=== PATIENT | male | born 1935 | race Caucasian/White ===

== ENCOUNTER 2018-05-08 17:44 | Emergency (ER) | payer BC ==
[~2018-05-08] VITALS: Ht 188 cm; Wt 94.3 kg
[2018-05-08 17:44] VITALS: BP_SYST 125
[2018-05-08 19:10] VITALS: BP_SYST 127
== END 2018-05-08 19:10 | disposition home or self-care (01) ==
LOC: SED 17:44
DX: S00.03XA Contusion of scalp, initial encounter (principal); I10 Essential (primary) hypertension; Z86.73 Personal history of transient ischemic attack (TIA), and cerebral infarction without residual deficits; Z88.8 Allergy status to other drugs, medicaments and biological substances; W18.00XA Striking against unspecified object with subsequent fall, initial encounter; Y93.01 Activity, walking, marching and hiking; Y92.89 Other specified places as the place of occurrence of the external cause; Y99.8 Other external cause status
CPT/HCPCS: 70450-TC; 99284

== ENCOUNTER 2019-01-30 19:54 | Inpatient (IN) | payer BC ==
[~2019-01-30] VITALS: Ht 185.4 cm; Wt 100.0 kg
[2019-01-30 20:00] VITALS: BP_SYST 112
[2019-01-31 01:23] LABS: HEMATOCRIT 40.6 % (36-54); HEMOGLOBIN 13.5 g/dL (14.0-18.0); MEAN CORPUSCULAR HEMOGLOBIN 31 pg (27-31); MEAN CORPUSCULAR HGB CONC 33 % (32-36); MEAN CORPUSCULAR VOLUME 93 fL (79.0-98.0); PLATELET COUNT (AUTO) 183 K/uL (130-430); RED BLOOD CELL COUNT(AUTO) 4.34 MIL/uL (4.2-6.2); WHITE BLOOD COUNT (AUTO) 9.9 K/uL (4.8-10.8)
[2019-01-31 01:24] LABS: BASOPHILS % (AUTO) 0.5 % (0.0-2.0); EOSINOPHILS # (AUTO) 0.6 K/uL (0.0-0.4); EOSINOPHILS % (AUTO) 6.5 % (0.0-4.0); LYMPHOCYTES # (AUTO) 1.6 K/uL (1.0-5.5); MONOCYTES # (AUTO) 0.9 K/uL (0.0-1.0); MONOCYTES % (AUTO) 9.6 % (1.7-9.3); NEUTROPHILS # (AUTO) 6.6 K/uL (1.8-7.7); NEUTROPHILS % (AUTO) 67.4 % (40.0-70.0)
[2019-01-31 01:25] LABS: ANION GAP 8 (5-15); CALCIUM 9.5 mg/dL (8.4-11.0); CHLORIDE 103 mmol/L (98-107); CREATININE 2.31 mg/dL (0.55-1.30); GLUCOSE 101 mg/dL (70-99); POTASSIUM 4.8 mmol/L (3.5-5.1); SODIUM SERUM 136 mmol/L (136-145); UREA NITROGEN, BLOOD 46 mg/dL (8-21)
[2019-01-31 01:30] LABS: PROTHROMBIN TIME 9.9 SECS (9.5-12.5)
[2019-01-31 01:31] LABS: ALANINE AMINOTRANSFERASE 20 U/L (12-78); ALBUMIN 3.7 g/dL (3.4-4.8); ASPARTATE AMINOTRANSFERASE 19 U/L (10-37); TOTAL BILIRUBIN 0.2 mg/dL (0.0-1.0)
[2019-01-31] MEDS ORDERED: ACET325T53 PO (01:46)
[2019-01-31] MEDS ORDERED: TAMS-11 PO (01:46)
[2019-01-31] MEDS ORDERED: LISI-600 PO (01:46)
[2019-01-31] MEDS ORDERED: LANS15CA14 PO (01:46)
[2019-01-31] MEDS ORDERED: DOCU-144 PO (01:46)
[2019-01-31] MEDS ORDERED: CEL20 PO (01:46)
[2019-01-31] MEDS ORDERED: MAGN400T10 PO (01:46)
[2019-01-31] MEDS ORDERED: ATEN-41 PO (01:46)
[2019-01-31] MEDS ORDERED: ASA81 PO (01:46)
[2019-01-31] MEDS ORDERED: KETO60CR2 TP (01:46)
[2019-01-31] MEDS ORDERED: CYAI1000 IM (01:46)
[2019-01-31] MEDS ORDERED: TEMA15CA5 PO (01:46)
[2019-01-31 02:52] VITALS: BP_SYST 147
[2019-01-31 04:45] VITALS: BP_SYST 143
[2019-01-31 07:39] VITALS: BP_SYST 129
[2019-01-31] MEDS ORDERED: ZOLPIDEM TARTRATE 5 MG TABLET PO PRN (10:15)
[2019-01-31] MEDS ORDERED: MORPHINE 4 MG/ML INJ. SYRINGE IVP PRN ×2 (10:15)
[2019-01-31] MEDS ORDERED: ONDANSETRON HCL 4 MG/2 ML VIAL IVP PRN (10:15)
[2019-01-31] MEDS ORDERED: POTASSIUM CHLORIDE 20 MEQ TAB.PRT.SR PO PRN (10:15)
[2019-01-31] MEDS ORDERED: LORazepam 2 MG/ML VIAL IVP PRN (10:15)
[2019-01-31] MEDS ORDERED: ACETAMINOPHEN 325 MG TABLET PO SCH (10:15)
[2019-01-31] MEDS ORDERED: DOCUSATE SODIUM 100 MG CAPSULE PO PRN (10:15)
[2019-01-31] MEDS ORDERED: MAGNESIUM SULFATE 50 ML IV PRN (10:15)
[2019-01-31] MEDS ORDERED: MUPIROCIN 2% TOPICAL OINTMENT 22 GM NS PRN (10:15)
[2019-01-31] MEDS ORDERED: ACETAMINOPHEN 325 MG TABLET PO PRN (10:15)
[2019-01-31] MEDS: NACL 0.9% 1,000 ML IV SCH (10:38)
[2019-01-31 12:37] VITALS: BP_SYST 95
[2019-01-31 14:35] LABS: BILIRUBIN,URINE NEGATIVE (NEGATIVE); BLOOD, URINE NEGATIVE (NEGATIVE); CLARITY/URINE SL HAZY (CLEAR); COLOR,URINE YELLOW (YELLOW); GLUCOSE,URINE NEGATIVE (NEGATIVE); KETONES,URINE NEGATIVE (NEGATIVE); LEUKOCYTE ESTERASE ,URINE NEGATIVE (NEGATIVE); NITRITE, URINE NEGATIVE (NEGATIVE); PH,URINE 6.5 (5.0-8.0); PROTEIN URINE NEGATIVE (NEGATIVE); UROBILINOGEN,URINE 0.2 (0.2-1.0)
[2019-01-31 16:33] VITALS: BP_SYST 128
[2019-01-31 19:05] VITALS: BP_SYST 133
[2019-01-31] MEDS ORDERED: TAMSULOSIN HCL 0.4 MG CAP PO SCH (21:00)
[2019-01-31] MEDS: DOCUSATE SODIUM 100 MG CAPSULE PO SCH (22:07)
[2019-02-01] MEDS: NACL 0.9% 1,000 ML IV SCH (01:55)
[2019-02-01 07:50] LABS: ANION GAP 10 (5-15); CALCIUM 8.8 mg/dL (8.4-11.0); CHLORIDE 107 mmol/L (98-107); CREATININE 1.79 mg/dL (0.55-1.30); GLUCOSE 107 mg/dL (70-99); POTASSIUM 4.9 mmol/L (3.5-5.1); SODIUM SERUM 139 mmol/L (136-145); UREA NITROGEN, BLOOD 33 mg/dL (8-21)
[2019-02-01 08:16] VITALS: BP_SYST 136
[2019-02-01 08:30] LABS: WHITE BLOOD COUNT (AUTO) 7.4 K/uL (4.8-10.8)
[2019-02-01 08:31] LABS: EOSINOPHILS % (AUTO) 11.7 % (0.0-4.0); HEMOGLOBIN 12.7 g/dL (14.0-18.0); LYMPHOCYTES # (AUTO) 1.6 K/uL (1.0-5.5); MEAN CORPUSCULAR HEMOGLOBIN 31 pg (27-31); MEAN CORPUSCULAR HGB CONC 33 % (32-36); MEAN CORPUSCULAR VOLUME 93 fL (79.0-98.0); MONOCYTES # (AUTO) 0.9 K/uL (0.0-1.0); MONOCYTES % (AUTO) 12.2 % (1.7-9.3); NEUTROPHILS % (AUTO) 54.1 % (40.0-70.0); PLATELET COUNT (AUTO) 189 K/uL (130-430); RED BLOOD CELL COUNT(AUTO) 4.09 MIL/uL (4.2-6.2); RED CELL DISTRIBUTION WIDTH 14.6 % (9.0-15.0)
[2019-02-01 08:32] LABS: BASOPHILS # (AUTO) 0.1 K/uL (0.0-0.2); EOSINOPHILS # (AUTO) 0.9 K/uL (0.0-0.4)
[2019-02-01] MEDS: DOCUSATE SODIUM 100 MG CAPSULE PO SCH (08:55)
[2019-02-01] MEDS ORDERED: CITALOPRAM HYDROBROMIDE 20 MG TABLET PO SCH (09:00)
[2019-02-01] MEDS ORDERED: ASPIRIN 81 MG TAB.CHEW PO SCH (09:00)
[2019-02-01] MEDS ORDERED: ATENOLOL 25 MG TABLET(TENORMIN) PO SCH (09:00)
[2019-02-01 12:23] VITALS: BP_SYST 143
[2019-02-01 13:03] VITALS: BP_SYST 140
== END 2019-02-01 14:57 | DRG 913 ==
LOC: SED 19:54 → STU 01-31 00:50
PROVIDERS: ADMIT General Practice; ATTEND General Practice
DX: S09.8XXA Other specified injuries of head, initial encounter (principal); N17.0 Acute kidney failure with tubular necrosis; I69.354 Hemiplegia and hemiparesis following cerebral infarction affecting left non-dominant side; G90.8 Other disorders of autonomic nervous system; N40.0 Benign prostatic hyperplasia without lower urinary tract symptoms; K21.9 Gastro-esophageal reflux disease without esophagitis; H91.90 Unspecified hearing loss, unspecified ear; F32.9 Major depressive disorder, single episode, unspecified; I10 Essential (primary) hypertension; W18.30XA Fall on same level, unspecified, initial encounter; Y93.89 Activity, other specified; Y92.121 Bathroom in nursing home as the place of occurrence of the external cause; Y99.8 Other external cause status; Z88.8 Allergy status to other drugs, medicaments and biological substances; Z95.1 Presence of aortocoronary bypass graft; Z79.82 Long term (current) use of aspirin; Z79.899 Other long term (current) drug therapy
CPT/HCPCS: 36415; 70450-TC; 71045; 80048; 80053; 81003; 83036; 83735-TC; 85025; 85610-TC; 85730-TC; 87081; 93005; 97110-GP; 97112-GP; 97530-GP; 99285; G0378; J7030; J7050

== ENCOUNTER 2022-03-11 11:31 | Inpatient (IN) | payer BC ==
[~2022-03-11] VITALS: Ht 172.7 cm; Wt 83.6 kg
[2022-03-11] VITALS (11 sets, daily range): BP systolic 74–200
[~2022-03-11 11:31] MED LIST: ACET325T53 PO; ASA81 PO; ATEN-41 PO; CEL20 PO; DOCU-144 PO; KETO60CR2 TP; TAMS-11 PO; TEMA15CA5 PO
--- NOTE | 2022-03-11 11:38 | NUR ---
Patient to ER bed 08 to gown for evaluation. Side rails up.
--- NOTE | 2022-03-11 11:44 | NUR ---
ER at bedside examining patient.
[2022-03-11] MEDS ORDERED: NACL 0.9% 1,000 ML IV ONE ×2 (12:00→13:15)
--- NOTE | 2022-03-11 12:00 | NUR ---
RECEIVED PT IN BED #8 [facility] FROM [facility] FOR CC OF POSSIBLE SEPSIS INFECTION AND HEMATURIA. PT IS ALTERED, WITH STAFF STATING HE IS NORMALLY A&OX3. PT HAS NEW SADLER PLACED WITH BLOOD. PT TO BE FURTHER ASSESSED BY ED MD FOR PLAN OF CARE WITH DISPOSITION.
[2022-03-11 12:18] LABS: BASOPHILS % (AUTO) 0.1 % (0.0-2.0); EOSINOPHILS % (AUTO) 0.4 % (0.0-4.0); HEMATOCRIT 43.3 % (36-54); HEMOGLOBIN 14.4 g/dL (14.0-18.0); LYMPHOCYTES # (AUTO) 0.3 K/uL (1.0-5.5); LYMPHOCYTES % (AUTO) 5.5 % (20.5-51.5); MEAN CORPUSCULAR HEMOGLOBIN 30 pg (27-31); MEAN CORPUSCULAR HGB CONC 33 % (32-36); MEAN CORPUSCULAR VOLUME 90 fL (79.0-98.0); MONOCYTES % (AUTO) 0.2 % (1.7-9.3); NEUTROPHILS # (AUTO) 5.4 K/uL (1.8-7.7); NEUTROPHILS % (AUTO) 93.8 % (40.0-70.0); PLATELET COUNT (AUTO) 220 K/uL (130-430); RED BLOOD CELL COUNT(AUTO) 4.82 MIL/uL (4.2-6.2); RED CELL DISTRIBUTION WIDTH 18.4 % (9.0-15.0); WHITE BLOOD COUNT (AUTO) 5.7 K/uL (4.8-10.8)
[2022-03-11 12:27] LABS: ANION GAP 13 (5-15); CALCIUM 8.7 mg/dL (8.4-11.0); CHLORIDE 98 mmol/L (98-107); CREATININE 2.17 mg/dL (0.55-1.30); GLUCOSE 102 mg/dL (70-99); POTASSIUM 3.2 mmol/L (3.5-5.1); SODIUM SERUM 131 mmol/L (136-145); UREA NITROGEN, BLOOD 20 mg/dL (8-21)
[2022-03-11 12:36] LABS: ALANINE AMINOTRANSFERASE 84 U/L (12-78); ALBUMIN 2.6 g/dL (3.4-4.8); ASPARTATE AMINOTRANSFERASE 48 U/L (10-37); TOTAL BILIRUBIN 0.6 mg/dL (0.0-1.0)
[2022-03-11] MEDS ORDERED: ACETAMINOPHEN 650 MG SUPP.RECT RC ONE (12:45)
[2022-03-11] MEDS ORDERED: PIPERACILLIN/TAZO 3.375 GM in NS 50 ML IV ONE (12:45)
[2022-03-11] MEDS ORDERED: PIPERACILLIN/TAZOBACTAM 3.375 GM/VIAL (ZOSYN) IV ONE (13:09)
[2022-03-11] MEDS ORDERED: PHEN15SP NS (13:21)
[2022-03-11] MEDS ORDERED: NIAC500T2 PO (13:21)
[2022-03-11] MEDS ORDERED: OMEG1CAP75 PO (13:21)
[2022-03-11] MEDS ORDERED: MULT-1117 PO (13:21)
[2022-03-11] MEDS ORDERED: PRO40 PO (13:21)
[2022-03-11] MEDS ORDERED: ZINC50TA69 PO (13:28)
[2022-03-11] MEDS ORDERED: ASCO500T20 PO (13:28)
[2022-03-11] MEDS ORDERED: VITS5OIN TP (13:28)
[2022-03-11] MEDS ORDERED: AMIN887L20 PO (13:28)
--- NOTE | 2022-03-11 13:28 | NUR ---
Medication reconciliation completed with information provided by Liban Faith. Any prior medication reconciliation on file was reviewed and corrected.
--- NOTE | 2022-03-11 13:40 | NUR ---
Admit bed requested Patient will be admitted to care of . Admitted to ICU unit. Diagnosis SEVERE SEPSIS Inpatient (Yes or No) Y Observation (Yes or No) N Orientation concerns or request close to nursing station (Yes or No) Y Covid Status On vent or bipap N Isolation requirements N Needs a sitter N From Home (Yes or if No enter name of facility) NO. [facility] Requires Dialysis (Yes or No) N Med Rec Completed (Yes of No) Y
[2022-03-11 14:11] LABS: BILIRUBIN,URINE NEGATIVE (NEGATIVE); BLOOD, URINE 3+ (NEGATIVE); CLARITY/URINE CLOUDY (CLEAR); COLOR,URINE RED (YELLOW); GLUCOSE,URINE NEGATIVE (NEGATIVE); KETONES,URINE NEGATIVE (NEGATIVE); LEUKOCYTE ESTERASE ,URINE 3+ (NEGATIVE); NITRITE, URINE NEGATIVE (NEGATIVE); PROTEIN URINE 3+ (NEGATIVE)
[2022-03-11 14:23] LABS: RBC,URINE >100 /HPF (0-3)
--- NOTE | 2022-03-11 14:23 | NUR ---
Patient will be admitted to care of Dr. Villarreal. Admitted to ICU unit. Will go to room 6. Belongings list completed. Complete and up to date summary report printed. SBAR report to be given at bedside with opportunity for questions.
[2022-03-11 14:30] LABS: WBC,URINE >100 /HPF (0-3)
[2022-03-11 14:31] LABS: BACTERIA,URINE MODERATE /HPF (None Seen)
[2022-03-11] MEDS ORDERED: KCL 20 mEq in D5NS 1000 mL 1,000 ML IV ONE (15:00)
--- NOTE | 2022-03-11 15:50 | NUR ---
Called Dr. Strange with a consult,spoke with Turner from doctors office
[2022-03-11] MEDS ORDERED: PANTOPRAZOLE SODIUM 40 MG/VIAL (PROTONIX) IVP ONE (16:00)
[2022-03-11] MEDS ORDERED: NOREPINEPHRINE 4 MG/4 ML VIAL IV ONE (16:18)
--- NOTE | 2022-03-11 16:30 | NUR ---
ADMISSION NOTE Received patient from ER via ashleigh, received report from anna GARIBAY. Patient admitted with diagnosis of severe sepsis, resp distress. Patient oriented to hospital routine, call light, toileting and safety-patient verbalized understanding.turner catheter gibraltarian #[id number].draining bloody.right inguinal area large hernia.
--- NOTE | 2022-03-11 17:16 | NUR ---
1550 PLACED PT ON .50 VENTI MASK. NO DISTRESS NOTED. HR 115 RR 24 SAT 100%. BIPAP NOT INDICATED AT THIS TIME. RN AWARE. Addendum: 03/11/22 at 1719 by Vivian Dorsey RT Amended: Links added.
[2022-03-11] MEDS ORDERED: LevALBUTEROL HCL 1.25 MG/0.5 ML *CONC.* VIAL.NEB (XOPENEX CONC.) INH PRN (18:15)
--- NOTE | 2022-03-11 18:31 | NUR ---
Notes: All needs mets, no s/s of distress. on venti mask 15liters, 50% fio2, saturation 100%, on Levophed 8 mg. @ 0.1mcg/kg/min. when dr. ellis made round, informed about the soft bump at the right inguinal area stated large hernia. Humphrey catheter draining bloody, no clots noted. order manual irrigation prn. bed is low and lock position. hob elevated to prevent aspiration to prevent aspiration. present of cough noted. oral care provided. will endorsed to incoming nurse.
--- NOTE | 2022-03-11 19:30 | NUR ---
Opening notes Received report from endorsing morning shift RN for continuity of care. Patient is lying in bed in no signs of distress with IVF KCL with 20 mEq in D5NS @100 mL/hr and levophed @0.16mcg/kg/min. Patient's vital signs blood pressure 74/27, heart rate 117, respirations 22, and SPO2 100% on venti mask 15L 50%. Humphrey catheter is in place draining to gravity. Bed is locked and in lowest position, fall and safety precautions is in place.
[2022-03-11] MEDS: KCL 20 mEq in D5NS 1000 mL 1,000 ML IV SCH (19:55)
[2022-03-11] MEDS: PIPERACILLIN/TAZO 3.375 GM in NS 50 ML IV SCH ×2 (19:55→23:38)
[2022-03-11] MEDS: LevALBUTEROL HCL 1.25 MG/0.5 ML *CONC.* VIAL.NEB (XOPENEX CONC.) INH SCH (20:12)
[2022-03-12] VITALS (24 sets, daily range): BP systolic 82–127
[2022-03-12] MEDS: NOREPINEPHRINE BITARTRATE 8 MG in NS 242 ML IV PRN ×3 (00:13→04:53)
[2022-03-12] MEDS: LevALBUTEROL HCL 1.25 MG/0.5 ML *CONC.* VIAL.NEB (XOPENEX CONC.) INH SCH ×5 (01:11→20:54)
[2022-03-12] MEDS: KCL 20 mEq in D5NS 1000 mL 1,000 ML IV SCH ×3 (02:48→23:35)
[2022-03-12] MEDS ORDERED: NOREPINEPHRINE 4 MG/4 ML VIAL IV ONE ×2 (04:52→07:28)
[2022-03-12] MEDS: PIPERACILLIN/TAZO 3.375 GM in NS 50 ML IV SCH ×4 (05:18→23:28)
[2022-03-12 06:19] LABS: HEMATOCRIT 38.8 % (36-54); HEMOGLOBIN 12.8 g/dL (14.0-18.0); MEAN CORPUSCULAR HEMOGLOBIN 29 pg (27-31); MEAN CORPUSCULAR HGB CONC 33 % (32-36); MEAN CORPUSCULAR VOLUME 89 fL (79.0-98.0); PLATELET COUNT (AUTO) 204 K/uL (130-430); RED BLOOD CELL COUNT(AUTO) 4.37 MIL/uL (4.2-6.2); RED CELL DISTRIBUTION WIDTH 18.2 % (9.0-15.0)
[2022-03-12 06:44] LABS: ANION GAP 13 (5-15); CALCIUM 7.6 mg/dL (8.4-11.0); CHLORIDE 106 mmol/L (98-107); CREATININE 1.94 mg/dL (0.55-1.30); GLUCOSE 132 mg/dL (70-99); POTASSIUM 3.7 mmol/L (3.5-5.1); SODIUM SERUM 137 mmol/L (136-145); UREA NITROGEN, BLOOD 19 mg/dL (8-21)
--- NOTE | 2022-03-12 07:10 | NUR ---
INITIAL BEDSIDE SHIFT REPORT RECEIVED FROM NIGHT RN FOR CONTINUATION OF CARE
[2022-03-12] MEDS: PANTOPRAZOLE SODIUM 40 MG/VIAL (PROTONIX) IVP SCH (08:17)
[2022-03-12 08:22] LABS: WHITE BLOOD COUNT (AUTO) 28.6 K/uL (4.8-10.8)
[2022-03-12 09:00] LABS: BAND % (MANUAL) 31 % (0-6); EOSINOPHILS % (MANUAL) 0 % (0-7); LYMPHOCYTES % (MANUAL) 1 % (20-46); METAMYELOCYTES % 1 % (0-0); MONOCYTES % (MANUAL) 2 % (0-11)
[2022-03-12 10:06] LABS: BASOPHILS % (MANUAL) 0 % (0-2)
[2022-03-12] MEDS: NOREPINEPHRINE BITARTRATE IV PRN ×3 (12:04→20:54)
[2022-03-12] MEDS: NS IV PRN ×3 (12:04→20:54)
--- NOTE | 2022-03-12 12:07 | NUR ---
1000 placed pt on 5l oxymizer. sat 98% hr 107 rr 27. Addendum: 03/12/22 at 1209 by Vivian Dorsey RT Amended: Links added.
--- NOTE | 2022-03-12 12:09 | NUR ---
0757 nts thick mod secretions. no distress noted. Addendum: 03/12/22 at 1210 by Vivian Dorsey RT Amended: Links added.
[2022-03-12] MEDS ORDERED: *PPN PER PHARMACY XX PRN (14:30)
[2022-03-12] MEDS ORDERED: MENTHOL/ZINC OXIDE 113 GM OINT. TP PRN (16:45)
--- NOTE | 2022-03-12 16:55 | NUR ---
1650 TITRATED FIO2 TO 8L OXYMIZER. SAT 96%. SUCTIONED ORALLY SMALL THICK WHITE SECRETIONS. WILL CONT TO MONITOR. Addendum: 03/12/22 at 1657 by Vivian Dorsey RT Amended: Links added.
--- NOTE | 2022-03-12 17:07 | NUR ---
WOUND EVALUATION: Wound Consult received from Dr. Villarreal. Thank you, Dr. Villarreal, for the consult. [facility] IsoFlex KAHLIL mattress, awake, alert, and oriented. Patient is unable to turn independently. Boaz Score is a 10. Past Medical History: Dementia, Benign Prostatic Hypertrophy. Recent Labs: WBC 28.6, RBC 4.37, hemoglobin 12.8, hematocrit 38.8, BUN 19, creatinine 1.94, calcium 7.6, albumin 2.6, ALT T 84, AST 48, alkaline phosphatase 127. Microbiology: Blood culture results x2 in progress. MRSA screen results in progress. Urine culture results in progress. Intrinsic factors that delay wound healing: Hypoalbuminemia. Extrinsic factors that delay wound healing: Immobility. Wound Assessment: 1. Sacral area: Stage III pressure ulcer, present on admission. Wound bed has 100% dull red tissue. No odor, no drainage. Anabel-wound intact. Measures 1.9 cm x 0.3 cm x 0.3 cm. Recommend: Cleanse wound with normal saline. Apply Calmoseptine cream to wound and periwound. Apply Venelex ointment to any portion of wound bed covered by Calmoseptine cream. Apply Calmoseptine to erythematous areas on Sacrum. Cover site with Sacral foam dressing. Perform site care daily, and as needed for dressing soiling or dislodgment. 2. 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 Fungal infection suspected. Recommend: Cleanse involved areas with mild soap and water. Pat dry. Place Inter-dry Ag cloth underneath scrotum. Apply antifungal powder to erythematous areas. If needed, pull scrotum off of bed by pulling Inter-dry Ag cloth up in between inguinal areas/thighs. Perform site care twice daily, and as needed for soiling. 3. Left Inguinal area: Erythema/Intertrigo from IAD, present on admission. Fungal infection suspected. 4. Right Inguinal area: Erythema/Intertrigo from IAD, present on admission. Fungal infection suspected. Recommend: Cleanse involved areas with mild soap and water. Pat dry. Apply antifungal powder to erythematous areas. Cut Inter-dry Ag cloth to size and place in inguinal areas. Perform site care twice daily, and as needed for soiling. 5. Right Lateral Forehead/[place]: Chronic unstageable pressure ulcer, present on admission. Wound bed has 100% black eschar. No odor, no drainage. Periwound intact. Wound measures 1.4 cm x 1.0 cm. Recommend: [place] wound with Betadine. Allowed to air dry. Cover site with foam dressing. Perform site care daily, and as needed for dressing soiling or dislodgment. Also recommend: Reposition patient side to side only every 2 hours with one pillow underneath trunk and one pillow underneath pelvis on bilateral sides at all times (there should be a gap in between the trunk and pelvic pillows where the wound area can float; The left and right trunk pillows should touch each other) - facilitate turning by placing 1 pillow underneath left side pillows for 2 hours, then rotate same pillow and place underneath right side pillows for 2 hours, switching sides every 2 hours. Off-load pressure areas with pillows for pressure re-distribution. Offload, elevate and float bilateral heels with 1 pillow lengthwise under each extremity. Perform skin care and monitor skin integrity Q shift. Use Calmoseptine cream on buttocks and other moisture susceptible areas QID and as needed for soiling. Patient patient on a P500 low air-loss mattress.
[2022-03-12] MEDS ORDERED: BALSAM PERU/CASTOR OIL 56.7 GM OINT...G. TP ONE (18:00)
--- NOTE | 2022-03-12 19:10 | NUR ---
Opening notes Received report from endorsing morning shift RN for continuity of care. Patient is lying in bed in no signs of distress with IVF KCL with 20 mEq in D5NS @ 100mL/hr and levophed @0.85 mcg/kg/min. Patient's vital signs blood pressure 109/69, heart rate 126, respirations 32, and SPO2 95%on oxymizer @8L. Humphrey catheter is in place draining to gravity. Bed is locked and in lowest position, fall and safety precautions is in place.
--- NOTE | 2022-03-12 19:13 | NUR ---
ENDORSEMENT BEDSIDE SHIFT REPORT GIVEN TO NIGHT RN FOR CONTINUATION OF CARE
--- NOTE | 2022-03-12 22:59 | NUR ---
Called Dr. Villarreal regarding patient's heart rate and pain. New order given.
[2022-03-12] MEDS ORDERED: NALOXONE HCL 0.4 MG/ML AMP (NARCAN) IVP PRN (23:00)
[2022-03-12] MEDS: MORPHINE 2 MG/ML INJ. SYRINGE IVP PRN (23:26)
[2022-03-13] VITALS (23 sets, daily range): BP systolic 81–118
[2022-03-13] MEDS: NOREPINEPHRINE BITARTRATE IV PRN ×6 (00:35→18:28)
[2022-03-13] MEDS: NS IV PRN ×6 (00:35→18:28)
[2022-03-13] MEDS: LevALBUTEROL HCL 1.25 MG/0.5 ML *CONC.* VIAL.NEB (XOPENEX CONC.) INH SCH ×4 (01:30→19:00)
[2022-03-13] MEDS: PIPERACILLIN/TAZO 3.375 GM in NS 50 ML IV SCH ×3 (05:48→17:43)
[2022-03-13 06:01] LABS: BASOPHILS % (AUTO) 0.2 % (0.0-2.0); EOSINOPHILS # (AUTO) 0.2 K/uL (0.0-0.4); EOSINOPHILS % (AUTO) 1.2 % (0.0-4.0); HEMOGLOBIN 13.8 g/dL (14.0-18.0); LYMPHOCYTES # (AUTO) 0.9 K/uL (1.0-5.5); LYMPHOCYTES % (AUTO) 4.2 % (20.5-51.5); MEAN CORPUSCULAR HEMOGLOBIN 29 pg (27-31); MEAN CORPUSCULAR HGB CONC 33 % (32-36); MEAN CORPUSCULAR VOLUME 89 fL (79.0-98.0); MONOCYTES # (AUTO) 0.7 K/uL (0.0-1.0); MONOCYTES % (AUTO) 3.5 % (1.7-9.3); NEUTROPHILS # (AUTO) 18.2 K/uL (1.8-7.7); NEUTROPHILS % (AUTO) 90.9 % (40.0-70.0); PLATELET COUNT (AUTO) 157 K/uL (130-430); RED BLOOD CELL COUNT(AUTO) 4.72 MIL/uL (4.2-6.2); RED CELL DISTRIBUTION WIDTH 19.4 % (9.0-15.0); WHITE BLOOD COUNT (AUTO) 20.1 K/uL (4.8-10.8)
--- NOTE | 2022-03-13 08:00 | NUR ---
JAMIE PIZANO CHECK VIEWER IS NURSE FOR THIS PATIENT//MW
[2022-03-13] MEDS: PANTOPRAZOLE SODIUM 40 MG/VIAL (PROTONIX) IVP SCH (08:25)
[2022-03-13 08:29] LABS: ALANINE AMINOTRANSFERASE 60 U/L (12-78); ALBUMIN 1.9 g/dL (3.4-4.8); ANION GAP 21 (5-15); ASPARTATE AMINOTRANSFERASE 83 U/L (10-37); CALCIUM 7.5 mg/dL (8.4-11.0); CHLORIDE 110 mmol/L (98-107); GLUCOSE 158 mg/dL (70-99); PHOSPHORUS 3.5 mg/dL (2.7-4.5); POTASSIUM 4.8 mmol/L (3.5-5.1); SODIUM SERUM 147 mmol/L (136-145); TOTAL BILIRUBIN 0.6 mg/dL (0.0-1.0); TRIGLYCERIDES 165 mg/dL (30-150); UREA NITROGEN, BLOOD 16 mg/dL (8-21)
[2022-03-13] MEDS: KCL 20 mEq in D5NS 1000 mL 1,000 ML IV SCH ×2 (08:30→21:53)
[2022-03-13] MEDS ORDERED: BALSAM PERU/CASTOR OIL 56.7 GM OINT...G. TP SCH (09:00)
--- NOTE | 2022-03-13 13:15 | NUR ---
Dr. Aguilar called for consult.
[2022-03-13] MEDS ORDERED: ACETYLCYSTEINE 20% 4 ML VIAL (RT) INH ONE (13:45)
--- NOTE | 2022-03-13 14:10 | NUR ---
PATIENT DIFFICULT TO SUCTION. HAS A LOT OF THICK TENACIOUS SECRETIONS.
--- NOTE | 2022-03-13 15:50 | NUR ---
PT TO [facility], 70% FOR HUMIDIFICATION/HOPEFULLY BRING UP SECRETIONS, ALSO PT PLACED ON MUCAMYST/PT IVF INCREASED TO 150CC/H AND CARDIAC CONSULT CALLED FOR SINUS TACHYCARDIA//MW
--- NOTE | 2022-03-13 17:00 | NUR ---
Spoke to Dr. Aguilar, with orders carried out.
[2022-03-13] MEDS ORDERED: METOPROLOL TARTRATE 5 MG/5 ML AMPUL IVP PRN (17:15)
[2022-03-13] MEDS ORDERED: MAGNESIUM SULFATE 50 ML IV ONE ×2 (17:15→18:31)
--- NOTE | 2022-03-13 17:34 | NUR ---
Consult called to Dr. Gutierrez's exchange, RE: Severe Sepsis Dr. Villalta is covering, Exchange will notify her of consult.
[2022-03-13] MEDS: ACETAMINOPHEN 650 MG SUPP.RECT RC PRN ×2 (17:43→22:08)
[2022-03-13] MEDS: ACETYLCYSTEINE 20% 4 ML VIAL (RT) INH SCH (19:00)
--- NOTE | 2022-03-13 19:14 | NUR ---
1830 PT HR IN THE 200S/EKG ORDERED, INCREASED FIO2, BOLUS GIVEN, MAGNESIUM RUNNING, GAVE PT MORPHINE AFTER TRYING VAGAL MANEUVERS/HR CAME DOWN FOR A MOMENT AND WENT BACK UP-PAGED MD HURLEY, EKG SHOWS SVT-NO RETURN CALLS YET, PT IS DNR/MW
[2022-03-13] MEDS ORDERED: [UNRECOGNIZED DRUG - OTHER] IV SCH ×7 (21:00)
[2022-03-13] MEDS ORDERED: NYSTATIN 15 GM TOPICAL POWDER TP SCH (21:00)
[2022-03-13] MEDS ORDERED: KCL 20 mEq in D5NS 1000 mL 1,000 ML IV SCH (21:00)
[2022-03-13] MEDS ORDERED: POTASSIUM ACETATE IV SCH ×7 (21:00)
[2022-03-13] MEDS ORDERED: MAGNESIUM SULFATE IV SCH ×7 (21:00)
[2022-03-13] MEDS ORDERED: MUPIROCIN 1 GM OIN.PF.APP NS SCH (21:00)
[2022-03-13] MEDS ORDERED: TPN PERIPHERAL IV SCH ×7 (21:00)
[2022-03-14] VITALS (7 sets, daily range): BP systolic 97–187
[2022-03-14] MEDS: PIPERACILLIN/TAZO 3.375 GM in NS 50 ML IV SCH ×2 (00:34→06:28)
[2022-03-14] MEDS: ACETYLCYSTEINE 20% 4 ML VIAL (RT) INH SCH (00:58)
[2022-03-14] MEDS: MORPHINE 2 MG/ML INJ. SYRINGE IVP PRN (00:59)
[2022-03-14] MEDS: LevALBUTEROL HCL 1.25 MG/0.5 ML *CONC.* VIAL.NEB (XOPENEX CONC.) INH SCH (00:59)
[2022-03-14 07:16] LABS: ALANINE AMINOTRANSFERASE 355 U/L (12-78); ALBUMIN 1.6 g/dL (3.4-4.8); ANION GAP 9 (5-15); ASPARTATE AMINOTRANSFERASE 744 U/L (10-37); CALCIUM 7.5 mg/dL (8.4-11.0); CHLORIDE 115 mmol/L (98-107); CREATININE 2.14 mg/dL (0.55-1.30); GLUCOSE 181 mg/dL (70-99); PHOSPHORUS 4.2 mg/dL (2.7-4.5); POTASSIUM 5.2 mmol/L (3.5-5.1); SODIUM SERUM 143 mmol/L (136-145); TOTAL BILIRUBIN 0.4 mg/dL (0.0-1.0); UREA NITROGEN, BLOOD 24 mg/dL (8-21)
--- NOTE | 2022-03-14 07:24 | NUR ---
PT'S BP BEGAN DROPPING AROUND 0600THIS MORNING AND THEN AT 0725 HE DID A LAND SLIDE FROM 113 TO 20 AND THEN NO POST WAS NOTED. ON COMING NURSE WAS AT BEDSIDE RECEIVING REPORT.
--- NOTE | 2022-03-14 08:12 | NUR ---
[facility] called one legacy about patient expiring. [facility] will not be taking the case.
--- NOTE | 2022-03-14 08:20 | NUR ---
Patient's Family/Next of Kin Notified of Cardiac . Daughter Loree Acknowledged Understanding of Patient's Passing and Stated that She Would Notify Her Sibling Steven of their Father's Passing.
--- NOTE | 2022-03-14 08:20 | NUR ---
Weight Checker spoke with wire bender about , wire bender will not be taking the case and has release the body to family. wire bender sales representative livestock- Leonard
[2022-03-14] MEDS ORDERED: MUPIROCIN 2% TOPICAL OINTMENT 22 GM NS SCH (09:00)
== END 2022-03-14 07:25 | DRG 871 ==
LOC: SED 11:31 → SIC 13:38
PROVIDERS: ADMIT Family Medicine; ATTEND Family Medicine
PROC: 05HY33Z Insertion of Infusion Device into Upper Vein, Percutaneous Approach (ICD-10-PCS; principal; 2022-03-11)
PROC: B54NZZA Ultrasonography of Left Upper Extremity Veins, Guidance (ICD-10-PCS; 2022-03-11)
DX: A41.9 Sepsis, unspecified organism (principal); R65.21 Severe sepsis with septic shock; J96.01 Acute respiratory failure with hypoxia; I69.354 Hemiplegia and hemiparesis following cerebral infarction affecting left non-dominant side; N39.0 Urinary tract infection, site not specified; N17.9 Acute kidney failure, unspecified; F02.80 Dementia in other diseases classified elsewhere, unspecified severity, without behavioral disturbance, psychotic disturbance, mood disturbance, and anxiety; G30.9 Alzheimer's disease, unspecified; N40.0 Benign prostatic hyperplasia without lower urinary tract symptoms; K21.9 Gastro-esophageal reflux disease without esophagitis; E86.0 Dehydration; Z20.822 Contact with and (suspected) exposure to COVID-19
CPT/HCPCS: 36415; 36600; 71045; 76770; 80048; 80053; 81000; 82803-TC; 83605; 83735; 83880; 84100; 84478; 84484; 85007; 85025; 85027; 86886; 86900; 86901; 87040; 87081; 87086; 93005; 94640; 96374; 99285; C9113; J2270; J2543; J3475; J3490; J7050; J7612